=== PATIENT | female | born 1965 | race African-American/Black ===

== ENCOUNTER 2022-03-25 20:48 | Inpatient (IN) ==
[2022-03-25] MEDS ORDERED: SODIUM CHLORIDE 0.9% 500 ML IV STA (21:16)
[2022-03-25] MEDS ORDERED: ONDANSETRON 4 MG/2 ML VIAL IV STA (21:16)
[2022-03-25] MEDS ORDERED: MORPHINE 2 MG/1 ML SYRINGE IV STA (21:16)
[2022-03-25 22:12] LABS: Basophils % 0.4 % (0.0-0.8); Eosinophils % 0.3 % (0.00-10.9); Hematocrit 33.3 VOL% (35.7-47.0); Hemoglobin 10.9 GM/DL (12.0-16.0); Immature Granulocytes % 10.3 %; Immature Granulocytes Absolute 0.72 #; Lymphocytes # 1.1 10*3/uL (1.4-4.0); Lymphocytes % 16.2 % (21.3-54.2); Mean Corpuscular HGB Conc 32.7 GM/DL (32-36); Mean Corpuscular Volume 90.5 FL (87-102); Mean Platelet Volume 10.3 FL (9.6-12.0); Monocytes # 0.5 10*3/uL (0.11-0.8); Monocytes % 7.7 % (1.7-12.7); NRBC # 0.08 10*3/uL; Neutrophils % 65.1 % (38.7-73.9); Platelet Count 84 T/CUMM (130-400); Red Blood Count 3.68 MC/CUMM (3.8-5.5); Red Cell Distribution Width 17.2 % (9.3-17.3)
[2022-03-25] MEDS ORDERED: PIPERACILLIN/TAZOBACTAM 3,375 MG in SODIUM CHLORIDE 0.9% 100 ML IV STA (22:24)
[2022-03-25 22:26] LABS: INR 1.3; PT Patient Result 14.2 SECS (10.1-12.1)
[2022-03-25 22:38] LABS: Albumin 1.9 G/DL (3.4-5.0); Band Neutrophils 9 % (0-10); Bilirubin,Total 0.7 MG/DL (0.20-1.00); Calcium 8.8 MG/DL (8.5-10.1); Lymphocytes 14 % (20-55); Metamyelocytes 3 %; Myelocytes 1 %; Nucleated Red Blood Cells 1 /100 WBC (0-5); Osmolality,Calculated 269.1 MOS/KG (273-304); Total Cells Counted 100; Total Protein 6.5 G/DL (6.4-8.2)
[2022-03-25 22:39] LABS: Platelet Estimate Decreased
[2022-03-25] MEDS ORDERED: GLUCAGON 1 MG VIAL IM PRN ×2 (23:07)
[2022-03-25] MEDS ORDERED: ONDANSETRON 4 MG/2 ML VIAL IV PRN (23:07)
[2022-03-25] MEDS ORDERED: DEXTROSE 10% 250 ML BAG IV PRN (23:07)
[2022-03-25] MEDS ORDERED: DEXTROSE 50% 25 GM/50 ML VIAL IV PRN (23:07)
[2022-03-25] MEDS ORDERED: HYDROmorphone 1 MG/1 ML SYRINGE IV STA (23:19)
[2022-03-25] MEDS ORDERED: ONDANSETRON 4 MG/2 ML VIAL IV ONE (23:19)
[2022-03-26] MEDS ORDERED: LACTULOSE 20 GM/30 ML UDCUP PO PRN (00:19)
[2022-03-26] MEDS ORDERED: POLYETHYLENE GLYCOL POWDER 17 GM PACK PO PRN (00:20)
[2022-03-26] MEDS: oxyCODONE ER 20 MG TABLET PO SCH ×3 (02:00→20:46)
[2022-03-26] MEDS: SODIUM CHLORIDE 0.9% 1,000 ML IV SCH ×2 (02:05→16:40)
[2022-03-26 03:50] LABS: Basophils % 0.6 % (0.0-0.8); Eosinophils % 0.4 % (0.00-10.9); Hematocrit 32.8 VOL% (35.7-47.0); Hemoglobin 10.6 GM/DL (12.0-16.0); Immature Granulocytes % 11.5 %; Immature Granulocytes Absolute 0.78 #; Lymphocytes % 15.4 % (21.3-54.2); Mean Corpuscular HGB Conc 32.3 GM/DL (32-36); Mean Corpuscular Volume 91.9 FL (87-102); Monocytes # 0.5 10*3/uL (0.11-0.8); Monocytes % 6.8 % (1.7-12.7); NRBC # 0.05 10*3/uL; Neutrophils % 65.3 % (38.7-73.9); Platelet Count 75 T/CUMM (130-400); Red Blood Count 3.57 MC/CUMM (3.8-5.5); White Blood Count 6.8 T/CUMM (4-12)
[2022-03-26 04:06] LABS: Albumin 1.7 G/DL (3.4-5.0); Bilirubin,Total 0.7 MG/DL (0.20-1.00); Calcium 8.2 MG/DL (8.5-10.1); Potassium 3.9 MMOL/L (3.5-5.1)
[2022-03-26 04:18] LABS: Lymphocytes 20 % (20-55); Myelocytes 1 %; Total Cells Counted 100
[2022-03-26 04:19] LABS: Platelet Estimate Decreased
[2022-03-26] MEDS: PIPERACILLIN/TAZOBACTAM 3,375 MG in SODIUM CHLORIDE 0.9% 100 ML IV SCH ×2 (06:08→17:17)
[2022-03-26] MEDS: INSULIN REGULAR 100 UNIT/ML SUBCUT SCH ×4 (07:36→20:48)
[2022-03-26] MEDS: METOCLOPRAMIDE 10 MG TABLET PO SCH (09:28)
[2022-03-26] MEDS: METOPROLOL TARTRATE 25 MG TABLET PO SCH ×2 (09:29→20:46)
[2022-03-26] MEDS: POTASSIUM CHLORIDE 20 MEQ TABLET PO SCH (09:29)
[2022-03-26] MEDS: fentaNYL 50 MCG/HR PATCH TRANSDERM SCH (09:29)
[2022-03-26] MEDS: GABAPENTIN 100 MG CAPSULE PO SCH ×2 (09:29→20:45)
[2022-03-26] MEDS: PANTOPRAZOLE 40 MG TABLET PO SCH (09:29)
[2022-03-26] MEDS: DEXAMETHASONE 4 MG TABLET PO SCH ×2 (09:29→20:46)
[2022-03-26] MEDS: FUROSEMIDE 40 MG/4 ML VIAL IV SCH (17:18)
[2022-03-26] MEDS: SENNA 8.6 MG TABLET PO SCH (20:46)
[2022-03-26] MEDS ORDERED: RANOLAZINE 500 MG TABLET PO SCH (21:00)
[2022-03-27] MEDS: PIPERACILLIN/TAZOBACTAM 3,375 MG in SODIUM CHLORIDE 0.9% 100 ML IV SCH ×3 (00:41→18:20)
[2022-03-27 06:19] LABS: Basophils % 0.5 % (0.0-0.8); Eosinophils % 0.1 % (0.00-10.9); Hematocrit 32.3 VOL% (35.7-47.0); Hemoglobin 10.5 GM/DL (12.0-16.0); Immature Granulocytes % 10.2 %; Immature Granulocytes Absolute 0.87 #; Lymphocytes % 11.3 % (21.3-54.2); Mean Corpuscular HGB Conc 32.5 GM/DL (32-36); Mean Platelet Volume 10.1 FL (9.6-12.0); Monocytes # 0.4 10*3/uL (0.11-0.8); Monocytes % 4.5 % (1.7-12.7); NRBC # 0.08 10*3/uL; Neutrophils % 73.4 % (38.7-73.9); Platelet Count 75 T/CUMM (130-400); Red Blood Count 3.55 MC/CUMM (3.8-5.5); Red Cell Distribution Width 16.8 % (9.3-17.3); White Blood Count 8.5 T/CUMM (4-12)
[2022-03-27 06:32] LABS: Albumin 1.9 G/DL (3.4-5.0); Bilirubin,Total 0.8 MG/DL (0.20-1.00); Calcium 8.1 MG/DL (8.5-10.1); Osmolality,Calculated 277.7 MOS/KG (273-304); Potassium 4.4 MMOL/L (3.5-5.1); Total Protein 6.5 G/DL (6.4-8.2)
[2022-03-27 06:56] LABS: Anisocytosis 1+; Atypical Lymphocytes Few; Band Neutrophils 17 % (0-10); Eosinophils 1 % (0-10); Lymphocytes 16 % (20-55); Metamyelocytes 2 %; Myelocytes 2 %; Platelet Estimate Decreased; Tear Drop Cells Few; Total Cells Counted 100
[2022-03-27 06:57] LABS: Nucleated Red Blood Cells 1 /100 WBC (0-5)
[2022-03-27] MEDS: INSULIN REGULAR 100 UNIT/ML SUBCUT SCH ×4 (08:16→20:55)
[2022-03-27] MEDS: POTASSIUM CHLORIDE 20 MEQ TABLET PO SCH (10:29)
[2022-03-27] MEDS: DEXAMETHASONE 4 MG TABLET PO SCH ×2 (10:30→20:55)
[2022-03-27] MEDS: METOCLOPRAMIDE 10 MG TABLET PO SCH (10:30)
[2022-03-27] MEDS: PANTOPRAZOLE 40 MG TABLET PO SCH (10:30)
[2022-03-27] MEDS: oxyCODONE ER 20 MG TABLET PO SCH ×2 (10:31→20:54)
[2022-03-27] MEDS: METOPROLOL TARTRATE 25 MG TABLET PO SCH ×2 (10:31→20:53)
[2022-03-27] MEDS: GABAPENTIN 100 MG CAPSULE PO SCH ×2 (10:32→20:53)
[2022-03-27] MEDS: ASPIRIN EC 81 MG TABLET PO SCH (10:47)
[2022-03-27] MEDS: FUROSEMIDE 40 MG/4 ML VIAL IV SCH (11:00)
[2022-03-27] MEDS: oxyCODONE IR 5 MG TABLET PO PRN ×2 (12:16→22:30)
[2022-03-27] MEDS: SENNA 8.6 MG TABLET PO SCH (20:53)
[2022-03-27] MEDS: SODIUM CHLORIDE 0.9% 1,000 ML IV SCH (22:35)
[2022-03-28] MEDS ORDERED: hydrALAZINE 20 MG/1 ML VIAL IV PRN (00:49)
[2022-03-28] MEDS: MORPHINE 2 MG/1 ML SYRINGE IV PRN ×2 (00:53→20:06)
[2022-03-28] MEDS: PIPERACILLIN/TAZOBACTAM 3,375 MG in SODIUM CHLORIDE 0.9% 100 ML IV SCH ×3 (00:56→16:54)
[2022-03-28 04:46] LABS: Basophils % 0.3 % (0.0-0.8); Eosinophils % 0.1 % (0.00-10.9); Hematocrit 31.1 VOL% (35.7-47.0); Hemoglobin 10.4 GM/DL (12.0-16.0); Immature Granulocytes % 10.5 %; Immature Granulocytes Absolute 1.21 #; Lymphocytes % 8.5 % (21.3-54.2); Mean Corpuscular HGB Conc 33.4 GM/DL (32-36); Mean Corpuscular Volume 89.4 FL (87-102); Monocytes # 0.7 10*3/uL (0.11-0.8); Monocytes % 6.4 % (1.7-12.7); NRBC # 0.16 10*3/uL; Neutrophils % 74.2 % (38.7-73.9); Platelet Count 80 T/CUMM (130-400); Red Blood Count 3.48 MC/CUMM (3.8-5.5); Red Cell Distribution Width 16.6 % (9.3-17.3); White Blood Count 11.5 T/CUMM (4-12)
[2022-03-28 05:18] LABS: Albumin 1.9 G/DL (3.4-5.0); Bilirubin,Total 0.6 MG/DL (0.20-1.00); Calcium 8.2 MG/DL (8.5-10.1); Osmolality,Calculated 274.2 MOS/KG (273-304); Potassium 4.3 MMOL/L (3.5-5.1); Total Protein 6.4 G/DL (6.4-8.2)
[2022-03-28 05:40] LABS: Anisocytosis 1+; Band Neutrophils 23 % (0-10); Lymphocytes 9 % (20-55); Metamyelocytes 2 %; Myelocytes 3 %; Nucleated Red Blood Cells 6 /100 WBC (0-5); Platelet Estimate Decreased; Tear Drop Cells Few; Total Cells Counted 100
[2022-03-28] MEDS: INSULIN REGULAR 100 UNIT/ML SUBCUT SCH ×4 (08:27→22:43)
[2022-03-28] MEDS: METOCLOPRAMIDE 10 MG TABLET PO SCH (09:44)
[2022-03-28] MEDS: GABAPENTIN 100 MG CAPSULE PO SCH ×2 (09:44→22:42)
[2022-03-28] MEDS: POTASSIUM CHLORIDE 20 MEQ TABLET PO SCH (09:44)
[2022-03-28] MEDS: oxyCODONE ER 20 MG TABLET PO SCH ×2 (09:45→22:42)
[2022-03-28] MEDS: PANTOPRAZOLE 40 MG TABLET PO SCH (09:46)
[2022-03-28] MEDS: METOPROLOL TARTRATE 25 MG TABLET PO SCH ×2 (09:46→22:42)
[2022-03-28] MEDS: DEXAMETHASONE 4 MG TABLET PO SCH ×2 (10:04→22:45)
[2022-03-28] MEDS: ASPIRIN EC 81 MG TABLET PO SCH (10:04)
[2022-03-28] MEDS: FUROSEMIDE 40 MG/4 ML VIAL IV SCH (10:15)
[2022-03-28] MEDS: DOCUSATE SODIUM 100 MG CAPSULE PO SCH ×2 (11:49→22:42)
[2022-03-28] MEDS: oxyCODONE IR 5 MG TABLET PO PRN (17:48)
[2022-03-28] MEDS: guaiFENesin 200 MG/10 ML UDCUP PO PRN (22:43)
[2022-03-28] MEDS: SENNA 8.6 MG TABLET PO SCH (22:50)
[2022-03-29] MEDS: PIPERACILLIN/TAZOBACTAM 3,375 MG in SODIUM CHLORIDE 0.9% 100 ML IV SCH ×3 (01:30→18:08)
[2022-03-29 05:14] LABS: Basophils % 0.3 % (0.0-0.8); Hemoglobin 9.9 GM/DL (12.0-16.0); Immature Granulocytes % 9.5 %; Lymphocytes % 9.1 % (21.3-54.2); Mean Corpuscular Volume 91.2 FL (87-102); Monocytes # 0.8 10*3/uL (0.11-0.8); Monocytes % 7.1 % (1.7-12.7); NRBC # 0.23 10*3/uL; Platelet Count 73 T/CUMM (130-400); Red Blood Count 3.29 MC/CUMM (3.8-5.5); White Blood Count 10.5 T/CUMM (4-12)
[2022-03-29 05:28] LABS: Albumin 1.9 G/DL (3.4-5.0); Bilirubin,Total 0.8 MG/DL (0.20-1.00); Calcium 7.4 MG/DL (8.5-10.1); Potassium 4.3 MMOL/L (3.5-5.1); Total Protein 6.2 G/DL (6.4-8.2)
[2022-03-29 06:05] LABS: Eosinophils 1 % (0-10); Lymphocytes 15 % (20-55); Myelocytes 1 %; Nucleated Red Blood Cells 3 /100 WBC (0-5); Platelet Estimate Decreased; Total Cells Counted 100
[2022-03-29] MEDS: INSULIN REGULAR 100 UNIT/ML SUBCUT SCH ×4 (08:17→23:26)
[2022-03-29] MEDS: DEXAMETHASONE 4 MG TABLET PO SCH ×2 (08:53→23:25)
[2022-03-29] MEDS: ASPIRIN EC 81 MG TABLET PO SCH (08:53)
[2022-03-29] MEDS: PANTOPRAZOLE 40 MG TABLET PO SCH (08:54)
[2022-03-29] MEDS: METOCLOPRAMIDE 10 MG TABLET PO SCH (08:54)
[2022-03-29] MEDS: METOPROLOL TARTRATE 25 MG TABLET PO SCH ×2 (08:54→23:25)
[2022-03-29] MEDS: DOCUSATE SODIUM 100 MG CAPSULE PO SCH ×2 (08:54→23:25)
[2022-03-29] MEDS: oxyCODONE ER 20 MG TABLET PO SCH ×2 (08:54→23:25)
[2022-03-29] MEDS: POTASSIUM CHLORIDE 20 MEQ TABLET PO SCH (08:54)
[2022-03-29] MEDS: GABAPENTIN 100 MG CAPSULE PO SCH ×2 (08:54→23:26)
[2022-03-29] MEDS: fentaNYL 50 MCG/HR PATCH TRANSDERM SCH (08:55)
[2022-03-29] MEDS: FUROSEMIDE 40 MG/4 ML VIAL IV SCH (09:08)
[2022-03-29] MEDS: MORPHINE 2 MG/1 ML SYRINGE IV PRN (16:08)
[2022-03-29] MEDS: guaiFENesin 200 MG/10 ML UDCUP PO PRN (23:26)
[2022-03-29] MEDS: SENNA 8.6 MG TABLET PO SCH (23:27)
[2022-03-30] MEDS: PIPERACILLIN/TAZOBACTAM 3,375 MG in SODIUM CHLORIDE 0.9% 100 ML IV SCH ×3 (01:10→17:22)
[2022-03-30 04:50] LABS: Basophils % 0.4 % (0.0-0.8); Eosinophils % 0.1 % (0.00-10.9); Hematocrit 31.2 VOL% (35.7-47.0); Hemoglobin 9.9 GM/DL (12.0-16.0); Immature Granulocytes % 8.4 %; Immature Granulocytes Absolute 0.91 #; Lymphocytes % 9.3 % (21.3-54.2); Mean Corpuscular HGB Conc 31.7 GM/DL (32-36); Mean Corpuscular Volume 92.9 FL (87-102); Monocytes # 0.7 10*3/uL (0.11-0.8); Monocytes % 6.1 % (1.7-12.7); NRBC # 0.14 10*3/uL; Neutrophils % 75.7 % (38.7-73.9); Platelet Count 74 T/CUMM (130-400); Red Blood Count 3.36 MC/CUMM (3.8-5.5); Red Cell Distribution Width 16.9 % (9.3-17.3); White Blood Count 10.8 T/CUMM (4-12)
[2022-03-30 05:12] LABS: Albumin 1.9 G/DL (3.4-5.0); Bilirubin,Total 1.1 MG/DL (0.20-1.00); Calcium 7.5 MG/DL (8.5-10.1); Osmolality,Calculated 275.1 MOS/KG (273-304); Potassium 4.8 MMOL/L (3.5-5.1); Total Protein 6.6 G/DL (6.4-8.2)
[2022-03-30 05:17] LABS: Band Neutrophils 4 % (0-10); Hypochromia Slight; Lymphocytes 9 % (20-55); Microcytosis Slight; Nucleated Red Blood Cells 4 /100 WBC (0-5); Platelet Estimate Decreased; Total Cells Counted 100
[2022-03-30] MEDS: INSULIN REGULAR 100 UNIT/ML SUBCUT SCH ×3 (08:15→17:37)
[2022-03-30] MEDS: PANTOPRAZOLE 40 MG TABLET PO SCH (11:01)
[2022-03-30] MEDS: DOCUSATE SODIUM 100 MG CAPSULE PO SCH (11:01)
[2022-03-30] MEDS: METOCLOPRAMIDE 10 MG TABLET PO SCH (11:01)
[2022-03-30] MEDS: METOPROLOL TARTRATE 25 MG TABLET PO SCH (11:01)
[2022-03-30] MEDS: GABAPENTIN 100 MG CAPSULE PO SCH (11:02)
[2022-03-30] MEDS: DEXAMETHASONE 4 MG TABLET PO SCH (11:02)
[2022-03-30] MEDS: POTASSIUM CHLORIDE 20 MEQ TABLET PO SCH (11:02)
[2022-03-30] MEDS: oxyCODONE ER 20 MG TABLET PO SCH (11:03)
[2022-03-30] MEDS: FUROSEMIDE 40 MG/4 ML VIAL IV SCH (11:03)
[2022-03-30] MEDS: oxyCODONE IR 5 MG TABLET PO PRN (16:12)
[2022-03-30 16:34] VITALS: BP 130/82
== END 2022-03-30 17:57 | disposition home or self-care (01) | DRG 180 ==
LOC: N.ED 20:48 → N.EDINP 23:07 → N.TELES 03-26 01:14
PROVIDERS: ADMIT Internal Medicine; ATTEND Internal Medicine